=== PATIENT | female | born 1980 | race Caucasian/White ===

== ENCOUNTER 2022-09-20 14:36 | Outpatient (CLI) | payer MEDICARE, MEDICAID, SELFPAY ==
--- NOTE | ~2022-09-20 | XR_ITS ---
EXAMINATION:XR cervical spine 4-5V DATE: 09/20/2022 14:55 INDICATION: Neck pain TECHNIQUE: AP and lateral in neutral, flexion, and extension no views of the cervical spine are provi ded. COMPARISON: None FINDINGS: There is straightening of the cervical spine which can be positional or due to muscular spa sm. Alignment is normal. No laxity with flexion or extension. The odontoid is intact. No fracture is identified. Vertebral body heights and disk spaces are normal. Prevertebral soft tissues are normal. IMPRESSION: 1. Unremarkable cervical spine. Reviewed, dictated and finalized at location A. TERIA OR LUNCHROOM CHECKER
== END 2022-09-20 14:37 | disposition home or self-care (01) ==
PROVIDERS: PCP Family Medicine; Visit Provider Nurse Practitioner Adult Health
DX: M54.2 Cervicalgia (principal)
CPT/HCPCS: 72050

== ENCOUNTER 2022-11-08 16:13 | Outpatient (CLI) | payer MEDICARE, MEDICAID, SELFPAY ==
--- NOTE | ~2022-11-08 | XR_ITS ---
EXAMINATION: XR ankle RT min 3V, XR foot RT min 3V DATE: 11/08/2022 16:42 INDICATION: Lateral right ankle and dorsolateral right foot pain post injury TECHNIQUE: 1. Anteroposterior, mortise, additional oblique and lateral view of the right ankle were obtained. 2. Dorsoplantar, two oblique and lateral views of the right foot were obtained. COMPARISON: None. FINDINGS: Alignment of the right foot and ankle is normal. No fracture or osteochondral lesion. Joint spaces ar e well maintained. No right ankle joint effusion. The soft tissues are unremarkable. IMPRESSION: 1. Negative right foot and ankle radiographs. Reviewed, dictated and finalized at location L. LY LAWYER IMPRESSION: 1. Negative right foot and ankle radiographs.
== END 2022-11-08 16:14 | disposition home or self-care (01) ==
LOC: ANHIMG 16:17
PROVIDERS: PCP Family Medicine; Visit Provider Family Medicine
DX: S99.911A Unspecified injury of right ankle, initial encounter (principal); X58.XXXA Exposure to other specified factors, initial encounter
CPT/HCPCS: 73610; 73630

== ENCOUNTER 2022-11-29 08:43 | Outpatient (CLI) | payer MEDICARE, MEDICAID, SELFPAY ==
--- NOTE | ~2022-11-29 | MR_ITS ---
EXAMINATION: MR cervical spine wo con DATE: 11/29/2022 09:44 INDICATION: Neck pain. TECHNIQUE: Magnetic resonance imaging (MRI) of the cervical spine was performed without intravenous c ontrast. COMPARISON: None FINDINGS: Bone alignment is normal. Vertebral body heights are normal. Intervertebral disc heights ar e normal. The spinal cord signal intensity is normal. The following disc levels are specifically disc ussed: C2-C3: The disc does not extend beyond the endplate margin. There is no uncovertebral joint osteoarth ritis. There is moderate right and mild left facet joint osteoarthritis. There is no neural foraminal stenosis. There is no central canal stenosis. C3-C4: The disc does not extend beyond the endplate margin. There is mild bilateral uncovertebral cesario nt osteoarthritis. There is moderate bilateral facet joint osteoarthritis. There is no neural foramin al stenosis. There is no central canal stenosis. C4-C5: The disc does not extend beyond the endplate margin. There is no uncovertebral joint osteoarth ritis. There is mild bilateral facet joint osteoarthritis. There is no neural foraminal stenosis. The re is no central canal stenosis. C5-C6: The disc does not extend beyond the endplate margin. There is no uncovertebral joint osteoarth ritis. There is mild bilateral facet joint osteoarthritis. There is no neural foraminal stenosis. The re is no central canal stenosis. C6-C7: There is a central extrusion. There is mild left uncovertebral joint osteoarthritis. There is mild bilateral facet joint osteoarthritis. There is no neural foraminal stenosis. There is mild centr al canal stenosis. C7-T1: The disc does not extend beyond the endplate margin. There is no uncovertebral joint osteoarth ritis. There is mild right and moderate left facet joint osteoarthritis. There is no neural foraminal stenosis. There is no central canal stenosis. IMPRESSION: 1. Mild cervical spondylosis. Reviewed, dictated and finalized at location A. T LINE SUPERVISOR
--- NOTE | ~2022-11-29 | MR_ITS ---
EXAMINATION: MR lumbar spine wo con DATE: 11/29/2022 09:44 INDICATION: Lumbago. TECHNIQUE: Magnetic resonance imaging (MRI) of the lumbar spine was performed without intravenous con trast. Sequences included sagittal T2-weighted FSE, sagittal T2-weighted FS FSE, sagittal T1-weighted FSE, and axial T2-weighted FSE. COMPARISON: Lumbar spine MRI 11/28/2016 FINDINGS: There is 3 mm retrolisthesis of L5 on S1. Vertebral body heights are normal. There is sever tommy decreased disc height at L5-S1 with endplate remodeling. The distal spinal cord signal intensity is normal. The conus medullaris is at L1. There is a 4.2 cm cyst in the right adnexa, likely a follic ular cyst. The following disc levels are specifically discussed: L1-L2: The disc does not extend beyond the endplate margin. There is no facet joint osteoarthritis. T here is no neural foraminal stenosis. There is no central canal stenosis. L2-L3: The disc does not extend beyond the endplate margin. There is mild bilateral facet joint osteo arthritis. There is no neural foraminal stenosis. There is no central canal stenosis. L3-L4: The disc is mildly bulging. There is mild bilateral facet joint osteoarthritis. There is mild bilateral neural foraminal stenosis. There is no central canal stenosis. L4-L5: The disc is bulging and has an annular fissure. There is mild bilateral facet joint osteoarthr itis. There is mild bilateral neural foraminal stenosis. There is mild central canal stenosis. L5-S1: The disc is bulging. There is no facet joint osteoarthritis. There is mild bilateral neural fo raminal stenosis. There is mild central canal stenosis. IMPRESSION: 1. Severe spondylosis at L5-S1 and mild spondylosis at other levels, stable from 11/28/2016. Reviewed, dictated and finalized at location A. F MECHANICAL OFFICER IMPRESSION: 1. Severe spondylosis at L5-S1 and mild spondylosis at other levels, stable fro 11/28/2016.
== END 2022-11-29 08:44 | disposition home or self-care (01) ==
PROVIDERS: PCP Family Medicine; Visit Provider Nurse Practitioner Family
DX: M54.2 Cervicalgia (principal); M54.50 Low back pain, unspecified; M43.02 Spondylolysis, cervical region; M43.06 Spondylolysis, lumbar region
CPT/HCPCS: 72141; 72148

== ENCOUNTER 2024-07-24 10:50 | Outpatient (CLI) | payer OTHER, MEDICARE, SELFPAY ==
--- NOTE | ~2024-07-24 | MMUS_ITS ---
EXAMINATION: MM diagnostic ba BI w berry, US breast RT complete HISTORY: Right breast milky nipple discharge. TECHNIQUE: Additional 3-D tomosynthesis images of the right breast were performed and synthetic 2-D i mages were generated. CAD analysis was submitted and interpreted. High resolution complete right reji st ultrasound was performed. COMPARISON: Comparison to multiple prior studies sequentially, with oldest reviewed study dated 12/2017. BREAST PARENCHYMAL COMPOSITION: Dense: The breasts are heterogeneously dense, which may obscure small masses FINDINGS: MAMMOGRAPHIC FINDINGS: There are no suspicious masses, calcifications or architectural distortion in either breast to sugges t malignancy. ULTRASOUND: Complete US of all 4 quadrants of the right breast/s and retroareolar region was reviewed. Normal het erogeneous echotexture without focal solid or cystic mass. IMPRESSION: 1. No evidence for malignancy in either breast. 2. Routine yearly screening mammogram and regular clinical breast examination are recommended. BI-RADS Category 1: Negative Reviewed, dictated and finalized at location B. IMPRESSION: 1. No evidence for malignancy in either breast. 2. Routine yearly screening mammogram and regular clinical breast examination a re recommended. BI-RADS Category 1: Negative
== END 2024-07-24 10:51 | disposition home or self-care (01) ==
PROVIDERS: PCP Family Medicine; Visit Provider Family Medicine
DX: N64.3 Galactorrhea not associated with childbirth (principal)
CPT/HCPCS: 76641; 77062; 77066; G0279

== ENCOUNTER 2024-10-09 14:52 | Outpatient (CLI) | payer OTHER, SELFPAY ==
--- NOTE | ~2024-10-09 | MR_ITS ---
EXAMINATION: MR pituitary wo/w con DATE: 10/09/2024 15:54 INDICATION: Hyperprolactinemia. TECHNIQUE: Magnetic resonance imaging (MRI) of the brain and brainstem was performed without and with 14 mL MultiHance intravenous contrast. COMPARISON: Brain MRI 01/28/17 FINDINGS: The pituitary is normal in size with height of 8 mm without change. There are scattered are as of nonspecific increased T2-weighted signal intensity in the cerebral white matter, which is withi n normal limits for the patient's age. There is no intracranial hemorrhage, acute infarction, or abno rmal intracranial mass lesion. The ventricles are normal in size. The paranasal sinuses are clear. Th e orbits are normal. The mastoid air cells are normal. IMPRESSION: 1. Normal aging brain. Normal pituitary. Reviewed, dictated and finalized at location [] UNICATIONS EQUIPMENT INSTALLER
[2024-10-09 17:12] LABS: Alanine Aminotransferase 31 U/L (6-35); Albumin Level 4.4 g/dL (3.5-5.1); Alkaline Phosphatase 55 U/L (38-126); Anion Gap 1 mmol/L (4-12); Aspartate Amino Transferase 25 U/L (14-36); Bilirubin,Total 0.3 mg/dL (0.2-1.3); Blood Urea Nitrogen 16 mg/dL (7-17); Calcium 9.4 mg/dL (8.4-10.2); Carbon Dioxide 27 mmol/L (22-30); Chloride 106 mmol/L (98-107); Estimated Glomerular Filt Rate > 60; Glucose 114 mg/dL (65-110); Sodium 134 mmol/L (137-145)
[2024-10-09 17:42] LABS: Thyroid Stimulating Hormone 0.949 uIU/mL (0.465-4.680); Total Triiodothyronine (T3) 1.25 NG/ML (0.97-1.69)
[2024-10-09 17:45] LABS: Free T4 Free Thyroxine 1.54 ng/dL (0.78-2.19); Vitamin D 25 Hydroxy 40.5 ng/mL
== END 2024-10-09 14:53 | disposition home or self-care (01) ==
PROVIDERS: PCP Family Medicine; Visit Provider Internal Medicine
DX: E03.9 Hypothyroidism, unspecified (principal); R79.89 Other specified abnormal findings of blood chemistry
CPT/HCPCS: 36415; 70553; 80053; 82306; 82607; 82672; 83001; 83002; 83519; 84146; 84305; 84439; 84443; 84445; 84480; A9577

== ENCOUNTER 2024-10-26 10:54 | Outpatient (CLI) | payer OTHER, SELFPAY ==
--- NOTE | ~2024-10-26 | US_ITS ---
EXAMINATION: US thyroid DATE: 10/26/2024 11:51 INDICATION: Hypothyroidism TECHNIQUE: Multiple ultrasound images of the thyroid were obtained. COMPARISON: None. FINDINGS: The right thyroid lobe measures 4.3 x 1.2 x 1.9 cm. The left thyroid lobe measures 4.9 x 1.8 x 1.3 c m. There are bilateral anechoic benign cystic TI RADS 1 nodules measuring 3 mm on the left and 2 mm on the right. There is normal echotexture, echogenicity and vascular flow throughout the thyroid glan d. IMPRESSION: 1. A couple likely benign very small bilateral TI RADS 1 cystic nodules measuring 3 mm on the left th yroid lobe and 2 mm on the right which require no further follow-up. Otherwise unremarkable thyroid u ltrasound. Reviewed, dictated and finalized at location B. WATER MACHINE OPERATOR IMPRESSION: 1. A couple likely benign very small bilateral TI RADS 1 cystic nodules measuri ng 3 mm on the left thyroid lobe and 2 mm on the right which require no further follow-up. Otherwise unremarkable thyroid ultrasound.
== END 2024-10-26 10:55 | disposition home or self-care (01) ==
PROVIDERS: PCP Family Medicine; Visit Provider Internal Medicine
DX: E03.9 Hypothyroidism, unspecified (principal); E04.2 Nontoxic multinodular goiter
CPT/HCPCS: 76536